=== PATIENT | male | born 1975 | race Caucasian/White ===

== ENCOUNTER 2020-01-27 19:04 | Emergency (ER) | payer SELFPAY ==
[~2020-01-27] VITALS: Ht 172.7 cm; Wt 73.0 kg
[2020-01-27 19:43] VITALS: BP 109/72
[2020-01-27] MEDS ORDERED: CEFTRIAXONE SODIUM 1 G/VIAL IM ONE (20:15)
[2020-01-27] MEDS ORDERED: TETRACAINE 0.5% OPHTH DROPS 4ML RIGHTEYE ONE (20:15)
[2020-01-27] MEDS ORDERED: LIDOCAINE HCL 1% 20ML VIAL (Pyxis) INJ INFIL ONE (20:15)
[2020-01-27] MEDS ORDERED: FLUORESCEIN SODIUM 1MG/STRIP RIGHTEYE ONE (21:00)
== END 2020-01-27 21:51 | disposition home or self-care (01) ==
LOC: ER 19:04
DX: S09.8XXA Other specified injuries of head, initial encounter (principal); X58.XXXA Exposure to other specified factors, initial encounter; Y93.89 Activity, other specified; Y92.89 Other specified places as the place of occurrence of the external cause; Y99.8 Other external cause status
CPT/HCPCS: 96372; 99283; J0696; J3490

== ENCOUNTER 2021-08-05 13:25 | Emergency (ER) | payer MEDICAID ==
[~2021-08-05] VITALS: Ht 172.7 cm; Wt 73.0 kg
[2021-08-05 13:41] VITALS: BP 103/70
[2021-08-05] MEDS ORDERED: AMOXICILLIN/POTASSIUM CLAVULANATE 875/125MG TAB PO ONE (15:00)
[2021-08-05] MEDS ORDERED: TETANUS, DIPHTHERIA, PERTUSSIS VAC/PF 0.5ML (>10YR OLD) IM ONE (15:00)
[2021-08-05] MEDS ORDERED: AMOX-424 MT (16:19)
== END 2021-08-05 16:45 | disposition home or self-care (01) ==
LOC: ER 13:25
DX: S61.256A Open bite of right little finger without damage to nail, initial encounter (principal); G40.909 Epilepsy, unspecified, not intractable, without status epilepticus; F41.9 Anxiety disorder, unspecified; F32.A Depression, unspecified; W55.01XA Bitten by cat, initial encounter; Y93.89 Activity, other specified; Y92.018 Other place in single-family (private) house as the place of occurrence of the external cause
CPT/HCPCS: 90471; 90715; 99283